=== PATIENT | female | born 1955 | race Caucasian/White ===

== ENCOUNTER 2016-11-23 18:22 | Emergency (ER) | payer OTHER ==
[~2016-11-23] VITALS: Ht 157.5 cm; Wt 66.0 kg
[2016-11-23 18:26] VITALS: BP 122/72; PULSE 82; RESP 24; TEMP 98.1; O2SAT 96
[2016-11-23] MEDS ORDERED: SODIUM CHLOR 0.9% 1000 ML INJ 1,000 ML IV SCH (21:13)
[2016-11-23] MEDS ORDERED: ATEN100T PO (21:14)
[2016-11-23] MEDS ORDERED: MORP1CAP63 PO (21:14)
[2016-11-23] MEDS ORDERED: AMLO10TA2 PO (21:14)
[2016-11-23] MEDS ORDERED: SODIUM CHLORIDE 0.9% FLUSH 10 ML FLUSH IV FLUSH PRN (21:15)
[2016-11-23] MEDS ORDERED: ONDANSETRON HCL 4 MG/2 ML VIAL IVP ONE (21:15)
--- NOTE | 2016-11-23 21:16 | PD ---
HPI Chief Complaint: GI Complaint Time Seen by Provider: 21:05 Travel History International Travel<30 days: No Contact w/Intl Traveler<30days: No Traveled to known affect area: No History of Present Illness HPI 61yo F with PMH of PMH of chronic back pain on morphine, HTN, multiple surgeries here with abdominal pain and vomiting today. States she has not had a bowel movement for 5 days and no flatus. Had history of obstruction before. Denies any fever, chest pain, sob. PFSH Past Medical History Cardiovascular Problems: Yes Social History Tobacco Use: No Allergies-Medications (Allergen,Severity, Reaction): Coded Allergies: promethazine (Verified Allergy, Severe, 11/23/16) Reported Meds & Prescriptions Reported Meds & Active Scripts Active Colace (Docusate Sodium) 100 Mg Capsule 1 Tab PO BID 10 Days Reported Zofran (Ondansetron HCl) 4 Mg Tab 4 Mg PO Q12HR PRN Flovent Hfa 10.6 GM Inh (Fluticasone Propionate) 44 Mcg/Act Inh 2 Puff INH BID Use daily at the same time. Zantac (Ranitidine HCl) 150 Mg Tab 75 Mg PO BID Morphine IR (Morphine Sulfate) 15 Mg Tab 15 Mg PO Q8-12 HRS PRN Flexeril (Cyclobenzaprine HCl) 10 Mg Tab 10 Mg PO TID Montelukast (Montelukast Sodium) 10 Mg Tab 10 Mg PO HS Px Laxative (Bisacodyl) 5 Mg Tab 1 Tab PO 3-4 TIME DAILY Atorvastatin (Atorvastatin Calcium) 20 Mg Tab 20 Mg PO HS Amlodipine (Amlodipine Besylate) 10 Mg Tab 10 Mg PO DAILY Atenolol 100 Mg Tab 100 Mg PO DAILY Morphine ER 24 HR (Morphine Sulfate) 30 Mg Caper 30 Mg PO TID Review of Systems Except as stated in HPI: all other systems reviewed are Neg Physical Exam Narrative GENERAL: 61yo F in mild distress. SKIN: Focused skin assessment warm/dry. HEAD: Atraumatic. Normocephalic. EYES: Pupils equal and round. No scleral icterus. No injection or drainage. ENT: No nasal bleeding or discharge. Mucous membranes pink and moist. NECK: Trachea midline. No JVD. CARDIOVASCULAR: Regular rate and rhythm. No murmur appreciated. RESPIRATORY: No accessory muscle use. Clear to auscultation. Breath sounds equal bilaterally. GASTROINTESTINAL: Abdomen soft, non-tender, +TTP mild epigastric region. +TTP LLQ, RLQ, suprapubic region. MUSCULOSKELETAL: No obvious deformities. No clubbing. No cyanosis. No edema. NEUROLOGICAL: Awake and alert. No obvious cranial nerve deficits. Motor grossly within normal limits. Normal speech. PSYCHIATRIC: Appropriate mood and affect; insight and judgment normal. Data Data Last Documented VS Vital Signs Date Time Temp Pulse Resp B/P (MAP) Pulse Ox O2 Delivery O2 Flow Rate FiO2 11/24/16 01:09 98.5 71 16 132/66 (88) 99 11/23/16 23:17 Room Air Orders Orders Complete Blood Count With Diff (11/23/16 21:13) Comprehensive Metabolic Panel (11/23/16 21:13) Lipase (11/23/16 21:13) Prothrombin Time / Inr (Pt) (11/23/16 21:13) Act Partial Throm Time (Ptt) (11/23/16 21:13) Urinalysis - C+S If Indicated (11/23/16 21:13) Ct Abd/Pel W Iv Contrast(Rout) (11/23/16 21:13) Iv Access Insert/Monitor (11/23/16 21:13) Ecg Monitoring (11/23/16 21:13) Oximetry (11/23/16 21:13) Ondansetron Inj (Zofran Inj) (11/23/16 21:15) Sodium Chlor 0.9% 1000 Ml Inj (Ns 1000 M (11/23/16 21:13) Sodium Chloride 0.9% Flush (Ns Flush) (11/23/16 21:15) Iodixanol 320 Inj (Rad Ct) (Visipaque 32 (11/23/16 22:39) Fleets Enema (Adult) (Fleets Enema (Adul (11/23/16 23:30) Ondansetron Inj (Zofran Inj) (11/24/16 00:30) Docusate Sodium (Colace) (11/24/16 00:30) Labs Laboratory Tests Test 11/23/16 21:23 11/23/16 23:08 White Blood Count 13.8 TH/MM3 Red Blood Count 4.86 MIL/MM3 Hemoglobin 14.3 GM/DL Hematocrit 43.4 % Mean Corpuscular Volume 89.3 FL Mean Corpuscular Hemoglobin 29.5 PG Mean Corpuscular Hemoglobin Concent 33.0 % Red Cell Distribution Width 13.0 % Platelet Count 319 TH/MM3 Mean Platelet Volume 7.6 FL Neutrophils (%) (Auto) 78.9 % Lymphocytes (%) (Auto) 12.3 % Monocytes (%) (Auto) 8.2 % Eosinophils (%) (Auto) 0.2 % Basophils (%) (Auto) 0.4 % Neutrophils # (Auto) 10.9 TH/MM3 Lymphocytes # (Auto) 1.7 TH/MM3 Monocytes # (Auto) 1.1 TH/MM3 Eosinophils # (Auto) 0.0 TH/MM3 Basophils # (Auto) 0.1 TH/MM3 CBC Comment DIFF FINAL Differential Comment Prothrombin Time 10.2 SEC Prothromb Time International Ratio 0.9 RATIO Activated Partial Thromboplast Time 23.4 SEC Blood Urea Nitrogen 14 MG/DL Creatinine 1.69 MG/DL Random Glucose 99 MG/DL Total Protein 9.2 GM/DL Albumin 4.8 GM/DL Calcium Level 10.0 MG/DL Alkaline Phosphatase 193 U/L Aspartate Amino Transf (AST/SGOT) 31 U/L Alanine Aminotransferase (ALT/SGPT) 81 U/L Total Bilirubin 0.7 MG/DL Sodium Level 133 MEQ/L Potassium Level 4.0 MEQ/L Chloride Level 93 MEQ/L Carbon Dioxide Level 29.9 MEQ/L Anion Gap 10 MEQ/L Estimat Glomerular Filtration Rate 31 ML/MIN Lipase 264 U/L Urine Color LIGHT-YELLOW Urine Turbidity CLEAR Urine pH 6.5 Urine Specific [place] 1.011 Urine Protein NEG mg/dL Urine Glucose (UA) NEG mg/dL Urine Ketones NEG mg/dL Urine Occult Blood NEG Urine Nitrite NEG Urine Bilirubin NEG Urine Urobilinogen LESS THAN 2.0 MG/DL Urine Leukocyte Esterase SMALL Urine RBC 1 /hpf Urine WBC 7 /hpf Urine Squamous Epithelial Cells <1 /hpf Urine Bacteria RARE /hpf Microscopic Urinalysis Comment CULT NOT INDICATED MDM Medical Decision Making Medical Screen Exam Complete: Yes Emergency Medical Condition: Yes Differential Diagnosis Obstruction vs. opioid related constipation Narrative Course 61yo F with abdominal pain, vomiting and no bowel movement for 5 days. Feels pressure in her rectum. Labs reviewed, mild leukocytosis at 13.8. Elevated ALT and alk phos. Normal bilirubin. CTa/p showed large stool in rectum. Nonobstructive pattern. Biliary distension, correlate clinically. UA negative. Pt has no RUQ pain and feels better after a small bowel movement here. Pt given fleet enema as well. Nausea improved after zofran. Return precautions given. Diagnosis Primary Impression: Constipation Qualified Codes: K59.00 - Constipation, unspecified Patient Instructions: General Instructions Departure Forms: Tests/Procedures Additional Instructions: Please follow up with your primary care physician in 3-7 days. Return to the ED if symptoms worsen. Med/Other Pt SpecificInfo: Prescription(s) given Scripts Docusate Sodium (Colace) 100 Mg Capsule 1 TAB PO BID for 10 Days Prov: Lia Reyes DO 11/24/16 Disposition: 01 DISCHARGE HOME Condition: Stable Lia Reyes DO Nov 23, 2016 21:16
[2016-11-23] MEDS ORDERED: MONT10TA4 PO (21:58)
[2016-11-23] MEDS ORDERED: [UNRECOGNIZED DRUG - OTHER] PO (21:58)
[2016-11-23] MEDS ORDERED: ATOR20TA15 PO (21:58)
[2016-11-23] MEDS ORDERED: CYCL1TAB29 PO (21:58)
[2016-11-23] MEDS ORDERED: MSIR15 PO (21:58)
[2016-11-23 21:59] LABS: APTT (PATIENT) 23.4 SEC (24.3-30.1); INTERNATIONAL NORMALIZED RATIO 0.9 RATIO; PROTHROMBIN TIME - PATIENT 10.2 SEC (9.8-11.6)
[2016-11-23] MEDS ORDERED: ZOFR4TAB PO (22:00)
[2016-11-23] MEDS ORDERED: FLUTI44I INH (22:00)
[2016-11-23] MEDS ORDERED: ZANT150T2 PO (22:00)
[2016-11-23 22:02] LABS: AUTOMATED NEUTROPHIL # 10.9 TH/MM3 (1.8-7.7); BASOPHIL # 0.1 TH/MM3 (0-0.2); BASOPHIL % 0.4 % (0.0-2.0); EOSINOPHIL % 0.2 % (0.0-4.0); HEMATOCRIT 43.4 % (35.0-46.0); HEMO FLAGS DIFF FINAL; LYMPH % 12.3 % (9.0-44.0); LYMPHOCYTE # 1.7 TH/MM3 (1.0-4.8); MEAN CELL VOLUME 89.3 FL (80.0-100.0); MEAN CORPUSCULAR HEMOGLOBIN 29.5 PG (27.0-34.0); MONO % 8.2 % (0.0-8.0); NEUT % 78.9 % (16.0-70.0); PLATELET COUNT 319 TH/MM3 (150-450); RED BLOOD COUNT 4.86 MIL/MM3 (4.00-5.30); WHITE BLOOD COUNT 13.8 TH/MM3 (4.0-11.0)
[2016-11-23 22:18] LABS: ALT (GPT) 81 U/L (10-53); ANION GAP 10 MEQ/L (5-15); AST (GOT) 31 U/L (15-37); BICARBONATE 29.9 MEQ/L (21.0-32.0); BLOOD UREA NITROGEN 14 MG/DL (7-18); CHLORIDE 93 MEQ/L (98-107); GLOMERULAR FILTRATION RATE 31 ML/MIN (>89); SODIUM (NA) 133 MEQ/L (136-145)
[2016-11-23 22:19] LABS: ALKALINE PHOSPHATASE 193 U/L (45-117); TOTAL BILIRUBIN ADULT 0.7 MG/DL (0.2-1.0)
[2016-11-23] MEDS ORDERED: IODIXANOL 320 MG/ML 10 ML VIAL (for Rad CT) IVCONTRAST ONE (22:39)
--- NOTE | 2016-11-23 22:53 | RADRPT ---
EXAM DATE/TIME: 11/23/2016 22:33 [facility] COMPARISON: No previous studies available for comparison. INDICATIONS : Bilateral lower quadrant pain with vomiting and no bowel movements for three days. IV CONTRAST: 50 cc Visipaque (iodixanol) IV ORAL CONTRAST: No oral contrast ingested. RADIATION DOSE: 8.91 CTDIvol (mGy) MEDICAL HISTORY : Cardiovascular disease. SURGICAL HISTORY : None. ENCOUNTER: Initial ACUITY: 3 days PAIN SCALE: 10/10 LOCATION: Bilateral lower quadrant TECHNIQUE: Volumetric scanning of the abdomen and pelvis was performed. Using automated exposure control and ad justment of the mA and/or kV according to patient size, radiation dose was kept as low as reasonably achievable to obtain optimal diagnostic quality images. DICOM format image data is available electro nically for review and comparison. FINDINGS: LOWER LUNGS: Mild streaky infiltrate or atelectasis of the right lung base. LIVER: Previous cholecystectomy. There is biliary distention. The common bile duct measures 13 mm. This is p resumably reservoir type effect but please correlate clinically. SPLEEN: Normal size without lesion. PANCREAS: Within normal limits. KIDNEYS: Normal in size and shape. There is no mass, stone or hydronephrosis. ADRENAL GLANDS: Within normal limits. VASCULAR: Atherosclerotic abdominal aorta. No aneurysm. BOWEL/MESENTERY: A large amount of stool in the rectum. There is stool and fluid in the rest of the colon. Nonobstruct norma pattern. No inflammatory changes are seen. Small hiatal hernia. ABDOMINAL WALL: Within normal limits. RETROPERITONEUM: There is no lymphadenopathy. BLADDER: No wall thickening or mass. REPRODUCTIVE: Within normal limits. INGUINAL: There is no lymphadenopathy or hernia. MUSCULOSKELETAL: No acute bony abnormality demonstrated. CONCLUSION: 1. Fluid and stool in the colon. Large stool in the rectum. Nonobstructive pattern. No acute inflamma tory changes demonstrated. 2. Biliary distention, presumably reservoir type effect related to previous cholecystectomy but pleas e correlate clinically and with any serologic evidence of biliary obstruction. 3. Atherosclerotic abdominal aorta. No aneurysm. 4. Small hiatal hernia. 5. Mild streaky atelectasis/infiltrate at the right lung base. Ilia Avila MD on November 23, 2016 at 22:46 Board Certified Radiologist. This report was verified electronically.
[2016-11-23 23:12] VITALS: BP 107/55; PULSE 71; O2SAT 97
[2016-11-23 23:17] VITALS: O2SAT 97
[2016-11-23 23:18] LABS: BACTERIA, URINE RARE /hpf; BLOOD, URINE NEG (NEG); COMMENT (UR) CULT NOT INDICATED; CULTURE IF INDICATED CULT NOT INDICATED; GLUCOSE,URINE NEG (NEG); KETONE, URINE NEG (NEG); NITRITE,URINE NEG (NEG); PH, URINE 6.5 (5.0-8.5); SQUAMOUS EPITHELIAL CELL URINE <1 /hpf (0-5); URINE COLOR LIGHT-YELLOW (YELLW/STRAW)
[2016-11-23] MEDS ORDERED: SOD PHOSPHATE/SOD BIPHOSPHATE (ADULT) ENEMA 133ML RECTAL ONE (23:30)
[2016-11-24] MEDS ORDERED: COLA100C PO (00:03)
[2016-11-24] MEDS ORDERED: DOCUSATE SODIUM 100 MG CAP PO ONE (00:30)
[2016-11-24] MEDS ORDERED: ONDANSETRON HCL 4 MG/2 ML VIAL IV PUSH ONE (00:30)
[2016-11-24 01:09] VITALS: BP 132/66; TEMP 98.5
== END 2016-11-24 01:13 | disposition home or self-care (01) ==
LOC: NEPD 18:22
DX: K59.00 Constipation, unspecified (principal)
CPT/HCPCS: 74177; 80053; 81001; 83690; 85025; 85610; 85730; 96361; 96374; 96376; 99285; J2405; J7030; Q9967

== ENCOUNTER → 2017-05-04 | Outpatient (CLI) | payer OTHER ==
[~2017-05-04] MED LIST: AMLO10TA2 PO; ATEN100T PO; ATOR20TA15 PO; COLA100C5 PO; CYCL10TA PO; FLUTI44I INH; MONT10TA4 PO; MORP1CAP63 PO; MSIR15 PO; ZANT150T2 PO; ZOFR4TAB PO; [UNRECOGNIZED DRUG - OTHER] PO
[2017-05-04 14:17] LABS: PLATELET FUNCTION TEST/EPI 93 SECONDS (103-176)
== END ==
LOC: CLAB 13:14
DX: G40.909 Epilepsy, unspecified, not intractable, without status epilepticus (principal)
CPT/HCPCS: 36415; 85576

== ENCOUNTER → 2017-06-14 | Outpatient (CLI) | payer OTHER ==
[2017-06-14 14:55] LABS: PLATELET FUNCTION TEST/EPI 104 SECONDS (103-176)
== END ==
LOC: CLAB 14:01
DX: R11.0 Nausea (principal); G40.909 Epilepsy, unspecified, not intractable, without status epilepticus
CPT/HCPCS: 36415; 85576